=== PATIENT | male | born 1945 | race Caucasian/White ===

== ENCOUNTER 2017-04-04 07:08 | Day surgery (SDC) | payer MEDICARE, OTHER ==
[2017-04-04] MEDS ORDERED: LACTATED RINGERS 1,000 ML IV ONE (08:06)
[2017-04-04] MEDS ORDERED: fentaNYL 100 MCG/2 ML VIAL IVP ONE (08:40)
[2017-04-04] MEDS ORDERED: MIDAZOLAM 2 MG/2 ML VIAL IVP ONE (08:40)
[2017-04-04 09:47] VITALS: BP 124/78
== END 2017-04-04 07:09 | disposition home or self-care (01) ==
LOC: SDS 07:08
PROVIDERS: ATTEND Surgery
PROC: 0DBN8ZX Excision of Sigmoid Colon, Via Natural or Artificial Opening Endoscopic, Diagnostic (ICD-10-PCS; 2017-04-04)
PROC: 0DBM8ZX Excision of Descending Colon, Via Natural or Artificial Opening Endoscopic, Diagnostic (ICD-10-PCS; 2017-04-04)
PROC: 0DBK8ZX Excision of Ascending Colon, Via Natural or Artificial Opening Endoscopic, Diagnostic (ICD-10-PCS; principal; 2017-04-04 08:30)
DX: D12.2 Benign neoplasm of ascending colon (principal); D12.4 Benign neoplasm of descending colon; K63.5 Polyp of colon; K64.4 Residual hemorrhoidal skin tags; K64.8 Other hemorrhoids; K59.00 Constipation, unspecified; Z79.82 Long term (current) use of aspirin; Z79.84 Long term (current) use of oral hypoglycemic drugs; E11.9 Type 2 diabetes mellitus without complications; Z82.3 Family history of stroke; E78.00 Pure hypercholesterolemia, unspecified; Z95.5 Presence of coronary angioplasty implant and graft
CPT/HCPCS: 45384; J7120

== ENCOUNTER 2018-02-12 | Outpatient (CLI) | END 2018-02-12 17:59 | disposition critical access hospital (66) | CPT/HCPCS: A0425; A0429 ==

== ENCOUNTER 2018-02-12 18:47 | Emergency (ER) | payer MEDICARE, OTHER ==
[2018-02-12] MEDS ORDERED: BACITRACIN OINT TOP STA (18:58)
[2018-02-12] MEDS ORDERED: TETANUS/DIPHTHERIA/PERTUSSIS 0.5 ML SYRINGE IM ONE (18:58)
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
[2018-02-12] MEDS ORDERED: IBUPROFEN 400 MG TABLET PO STA (20:18)
[2018-02-12 21:00] VITALS: BP 157/95
== END 2018-02-12 21:00 | disposition home or self-care (01) ==
LOC: EDUNIT# → ED 18:47
DX: S01.81XA Laceration without foreign body of other part of head, initial encounter (principal); S00.81XA Abrasion of other part of head, initial encounter; V18.4XXA Pedal cycle driver injured in noncollision transport accident in traffic accident, initial encounter; Y93.55 Activity, bike riding; Y92.488 Other paved roadways as the place of occurrence of the external cause; E78.00 Pure hypercholesterolemia, unspecified; E11.9 Type 2 diabetes mellitus without complications; Z79.84 Long term (current) use of oral hypoglycemic drugs; N40.0 Benign prostatic hyperplasia without lower urinary tract symptoms; Z79.82 Long term (current) use of aspirin; Z23 Encounter for immunization
CPT/HCPCS: 12011; 70450; 70486; 90471; 90715; 99283; A9270

== ENCOUNTER 2019-07-15 04:29 | Observation (INO) | payer MEDICARE, OTHER ==
[2019-07-15] MEDS ORDERED: SODIUM CHLORIDE 0.9% 500 ML IV STA (04:51)
[2019-07-15] MEDS ORDERED: KETOROLAC 30 MG/ML VIAL IVP STA (04:51)
[2019-07-15] MEDS ORDERED: HYDROmorphone 1 MG/ML CARPUJECT IVP STA (04:51)
[2019-07-15] MEDS ORDERED: ONDANSETRON 4 MG/2 ML VIAL IVP STA ×2 (04:51→08:07)
--- NOTE | 2019-07-15 04:51 | ED Physician Documentation ---
PD HPI ABD PAIN - Stated complaint Stated Complaint: STOMACH PX, CHEST PX - History obtained from History obtained from: Patient - History of Present Illness Timing - onset: Enter time (14:00), Yesterday Timing - details: Abrupt onset, Waxing and waning, Still present in ED Pain level max: 8 Pain level now: 6 Quality: Pain Location: RUQ, Epigastric Improved by: Other (nothing) Worsened by: Other (no exacerbating factors) Associated symptoms: Nausea, Vomiting. No: Fever, Diarrhea, Constipation Similar symptoms before: Other (milder, self-limited similar episodes over past several days) Recently seen: Not recently seen - Additional information Additional information: since 2 PM yesterday after eating fried chicken, experienced sudden onset RUQ and epigastric pain that has been waxing and waning since then with nausea and episodes of "dry heaving". Review of Systems Constitutional: denies: Fever, Chills, Sweats Nose: reports: Reviewed and negative Throat: reports: Reviewed and negative Cardiac: reports: Reviewed and negative Respiratory: reports: Reviewed and negative GI: reports: Abdominal Pain, Nausea, Vomiting. denies: Constipation, Diarrhea : denies: Dysuria, Frequency Skin: reports: Reviewed and negative Musculoskeletal: reports: Reviewed and negative Neurologic: reports: Reviewed and negative PD PAST MEDICAL HISTORY - Past Medical History Cardiovascular: High cholesterol, [place] Respiratory: None Endocrine/Autoimmune: Type 2 diabetes GI: Hemorrhoids : Benign prostate hypertrophy HEENT: None Psych: None Musculoskeletal: None Derm: None - Past Surgical History Past Surgical History: Yes Ortho: Hip replacement Cardiovascular: Coronary stent - Present Medications Home Medications: Ambulatory Orders Medication Instructions Recorded Confirmed Aspirin [Aspir 81] 162 mg PO DAILY 02/17/15 04/03/17 Tamsulosin [Flomax] 0.4 mg PO DAILY 02/17/15 04/03/17 metFORMIN [Glucophage] 500 mg PO BIDWM 02/17/15 04/03/17 Atorvastatin [Lipitor] 10 mg PO QPM 04/04/17 04/04/17 - Allergies Allergies/Adverse Reactions: Allergies Allergy/AdvReac Type Severity Reaction Status Date / Time No Known Drug Allergies Allergy Verified 02/17/15 16:37 - Social History Does the pt smoke?: No Smoking Status: Never smoker Does the pt drink ETOH?: Yes Does the pt have substance abuse?: No - Immunizations Immunizations are current?: Yes PD ED PE NORMAL - Vitals Vital signs reviewed: Yes - General General: Alert and oriented X 3, Well developed/nourished, Other (appears uncomfortable, mild/moderate painful distress) - HEENT HEENT: Moist mucous membranes - Neck Neck: Supple, no meningeal sign - Cardiac Cardiac: RRR, No murmur - Respiratory Respiratory: No respiratory distress, Clear bilaterally - Abdomen Abdomen: Normal bowel sounds, Soft, Non tender, Non distended - Back Back: No CVA TTP - Derm Derm: Normal color, Warm and dry, No rash - Extremities Extremities: No edema Results - Vitals Vitals: Vital Signs - 24 hr 07/15/19 07/15/19 07/15/19 04:33 04:42 07:32 Temperature 36.5 C Heart Rate 66 61 Respiratory 23 20 Rate Blood Pressure 218/91 H 128/68 O2 Saturation 100 98 Oxygen O2 Source Room air - Labs Labs: Laboratory Tests 07/15/19 07/15/19 07/15/19 04:40 04:40 04:40 WBC 11.3 H RBC 5.15 Hgb 15.8 Hct 45.8 MCV 88.9 MCH 30.7 MCHC 34.5 RDW 11.8 L Plt Count 193 MPV 10.3 Neut # (Auto) 9.6 H Lymph # (Auto) 1.0 L Brewster # (Auto) 0.6 Eos # (Auto) 0.0 Baso # (Auto) 0.0 Absolute Nucleated RBC 0.00 Nucleated RBC % 0.0 Sodium 136 Potassium 4.0 Chloride 100 L Carbon Dioxide 23 Anion Gap 13.0 BUN 15 Creatinine 0.8 Estimated GFR (MDRD) 95 Glucose 204 H Calcium 9.9 Total Bilirubin 1.5 H AST 23 ALT 20 Alkaline Phosphatase 72 Troponin I High Sens 5.0 Total Protein 7.6 Albumin 4.6 Globulin 3.0 Albumin/Globulin Ratio 1.5 Lipase 19 L Urine Color Urine Clarity Urine pH Ur Specific [place] Urine Protein Urine Glucose (UA) Urine Ketones Urine Occult Blood Urine Nitrite Urine Bilirubin Urine Urobilinogen Ur Leukocyte Esterase Ur Microscopic Review Urine Culture Comments 07/15/19 06:33 WBC RBC Hgb Hct MCV MCH MCHC RDW Plt Count MPV Neut # (Auto) Lymph # (Auto) Brewster # (Auto) Eos # (Auto) Baso # (Auto) Absolute Nucleated RBC Nucleated RBC % Sodium Potassium Chloride Carbon Dioxide Anion Gap BUN Creatinine Estimated GFR (MDRD) Glucose Calcium Total Bilirubin AST ALT Alkaline Phosphatase Troponin I High Sens Total Protein Albumin Globulin Albumin/Globulin Ratio Lipase Urine Color YELLOW Urine Clarity CLEAR Urine pH 7.0 Ur Specific [place] 1.015 Urine Protein NEGATIVE Urine Glucose (UA) 250 H Urine Ketones 15 H Urine Occult Blood NEGATIVE Urine Nitrite NEGATIVE Urine Bilirubin NEGATIVE Urine Urobilinogen 0.2 (NORMAL) Ur Leukocyte Esterase NEGATIVE Ur Microscopic Review NOT INDICATED Urine Culture Comments NOT INDICATED - Rads (name of study) RUQ US Radiology: Prelim report reviewed, See rad report PD MEDICAL DECISION MAKING - ED course Complexity details: reviewed results, re-evaluated patient, considered differential, d/w patient ED course: Symptoms controlled with IV zofran, dilaudid, and toradol. US interpreted as c/w acute cholecystitis. D/W Dr. Meir Milton, recommends IV zosyn and admit to hospitalist service. D/W Dr. Pedraza for admission Departure - Departure Disposition: ED Place in Observation Clinical Impression: Cholecystitis Condition: Good
[2019-07-15 05:19] LABS: BASOPHILS % (AUTO) 0.3 %; EOSINOPHILS % (AUTO) 0.1 %; HGB - HEMOGLOBIN 15.8 g/dL (14.0-18.0); LYMPHOCYTES % (AUTO) 8.4 %; MEAN CORPUSCULAR HEMOGLOBIN 30.7 pg (27.0-31.0); MEAN CORPUSCULAR HGB CONC 34.5 g/dL (32.0-36.0); MEAN CORPUSCULAR VOLUME 88.9 fL (80.0-94.0); MEAN PLATELET VOLUME 10.3 fL (7.4-11.4); MONOCYTES # (AUTO) 0.6 10^3/uL (0.0-1.0); MONOCYTES % (AUTO) 5.2 %; NEUTROPHILS # (AUTO) 9.6 10^3/uL (1.5-6.6); NEUTROPHILS % (AUTO) 85.6 %; PLT - PLATELET COUNT 193 10^3/uL (130-450); RED BLOOD COUNT 5.15 10^6/uL (4.70-6.10); RED CELL DISTRIBUTION WIDTH 11.8 % (12.0-15.0); WHITE BLOOD COUNT 11.3 x10^3/uL (4.8-10.8)
[2019-07-15 05:30] LABS: ALBUMIN 4.6 g/dL (3.2-5.5); ALBUMIN/GLOBULIN RATIO 1.5 (1.0-2.2); BILIRUBIN,TOTAL 1.5 mg/dL (0.2-1.0); CALCIUM 9.9 mg/dL (8.5-10.3); CREATININE 0.8 mg/dL (0.6-1.2); TOTAL PROTEIN 7.6 g/dL (6.7-8.2)
--- NOTE | 2019-07-15 06:26 | Ultrasound Report ---
Reason: abd. pain Procedure Date: 07/15/2019 Accession Number: [id number] / [id number] Procedure: US - Abdomen Limited CPT Code: Final Report FULL RESULT: EXAM: ABDOMEN ULTRASOUND LIMITED, RUQ EXAM DATE: 07/15/2019 06:08 AM CLINICAL HISTORY: Abdominal pain. COMPARISON: None. TECHNIQUE: Real-time scanning was performed with static images obtained. FINDINGS: Liver: Echotexture within normal limits without suspicious abnormality seen. Main portal vein flow: Hepatopetal. Gallbladder: Large stone lodged in the neck of the gallbladder. Wall thickening at 4 mm. There is reported tenderness. Biliary System: CBD measures 5 mm. No intrahepatic or extrahepatic ductal dilatation. Other: No right hydronephrosis. IMPRESSION: Findings consistent with acute cholecystitis. RADIA
[2019-07-15 06:42] LABS: BILIRUBIN,URINE NEGATIVE (NEGATIVE); GLUCOSE, URINE (UA) 250 mg/dL (NEGATIVE); KETONES,URINE (UA) 15 mg/dL (NEGATIVE); LEUKOCYTE ESTERASE, URINE NEGATIVE (NEGATIVE); NITRITE,URINE NEGATIVE (NEGATIVE); OCCULT BLOOD,URINE NEGATIVE (NEGATIVE); PROTEIN,URINE NEGATIVE (NEGATIVE); UROBILINOGEN,URINE 0.2 (NORMAL) E.U./dL (NORMAL)
[2019-07-15 06:49] LABS: CLARITY,URINE CLEAR (CLEAR)
[2019-07-15] MEDS ORDERED: PIPERACILLIN/TAZOBACTAM 3.375 GM in SODIUM CHLORIDE 0.9% MINIBAG 100 ML IV STA (07:27)
[2019-07-15] MEDS ORDERED: ONDANSETRON 4 MG/2 ML VIAL IVP PRN (07:44)
[2019-07-15] MEDS ORDERED: MORPHINE 2 MG/ML CARPUJECT IVP PRN (07:44)
[2019-07-15] MEDS ORDERED: LACTATED RINGERS 1,000 ML IV SCH ×2 (08:00→18:49)
[2019-07-15] MEDS: SODIUM CHLORIDE FLUSH 0.9% 10 ML SYRINGE IVP SCH ×2 (09:12→16:43)
--- NOTE | 2019-07-15 09:18 | HISTORY & PHYSICAL EXAMINATION ---
Chief Complaint - Chief Complaint Chief Complaint: Abdominal/Chest pain. History of Present Illness - Admitted From Admitted From:: Home - History Obtained From Records Reviewed: Yes History obtained from: Patient, ESTELLA Redmond - History of Present Illness HPI Comment/Other: This is a 74-year-old male with a past medical history significant for type 2 diabetes, coronary artery disease with stenting Who presents from home complaining of epigastric and chest pain. He reports the pain began yesterday around 2 PM after he had fried chicken 1 hour earlier. He did peel the skin off the chicken prior to eating this. He then had nausea with dry heaves. He reports no similar episodes. He reports no fevers but he did have chills. He did feel like he was short of breath after the episode and had heartburn and some chest pain. He also reports diffuse abdominal pain during that time.He reports no dysuria, urgency. Reports that he is normally quite active and hikes quite a bit. He does not have chest pain with exertion. He had a nuclear str ess test completed approximately 1 year ago and was told it was normal. He just saw his cook helper meat a few days ago and was doing quite well. In the emergency department, he was found to be hemodynamically stable. Labs were unremarkable except for a white count of 11.3 and a glucose of 204. Total bilirubin was 1.5. AST and ALT were normal. Lipase was also normal. He underwent a right upper quadrant ultrasound which showed a large stone in the neck of the bladder and wall thickening at 4 mm. There was no duct dilatation. This was consistent with acute cholecystitis. Surgery was consulted and recommended medicine admission given the history of coronary artery disease and diabetes. He will be admitted for further management. Discussed with the patient regarding goals of care and he would like to be a full code. History - Past Medical History Cardiovascular: reports: High cholesterol, [place] Respiratory: reports: None Neuro: reports: None Endocrine/Autoimmune: reports: Type 2 diabetes GI: reports: Hemorrhoids : reports: Benign prostate hypertrophy HEENT: reports: None Psych: reports: None Musculoskeletal: reports: None Derm: reports: None MRSA Hx?: No - Past Surgical History Ortho: reports: Hip replacement Cardiovascular: reports: Coronary stent - Family & Social History Family History Comment/Other: Reports his father had a cardiac history. Denies any other family history. Living arrangement: At home Living Situation: With spouse/s.o. 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 Previously lived in [place]. He does not smoke. He does drink approximately 2 glasses of wine on a daily basis. Meds/Allgy - Home Medications Home Medications: Ambulatory Orders Medication Instructions Recorded Confirmed Aspirin [Aspir 81] 162 mg PO DAILY 02/17/15 04/03/17 Tamsulosin [Flomax] 0.4 mg PO DAILY 02/17/15 04/03/17 metFORMIN [Glucophage] 500 mg PO BIDWM 02/17/15 04/03/17 Atorvastatin [Lipitor] 10 mg PO QPM 04/04/17 04/04/17 - Allergies Allergies/Adverse Reactions: Allergies Allergy/AdvReac Type Severity Reaction Status Date / Time No Known Drug Allergies Allergy Verified 02/17/15 16:37 Review of Systems - Constitutional Constitutional: reports: Chills. denies: Fatigue, Fever, Poor appetite - Cardiovascular Cariovascular: reports: Chest pain. denies: Exertional dyspnea, Decr. exercise tolerance - Respiratory Respiratory: denies: Cough, SOB at rest, SOB with exertion - Gastrointestinal Gastrointestinal: reports: Abdominal pain, Change in bowel habits, Nausea, Vomiting. denies: Constipation, Diarrhea - Genitourinary Genitourinary: denies: Dysuria, Frequency, Urgency - Neurological Neurological: denies: General weakness - All Other Systems All Other Systems: reports: Reviewed and negative Prior Level of Functionality: Independent with ADLs. Exam - Vital Signs Reviewed Vital Signs: Yes Vital Signs: Vital Signs x48h Temp Pulse Pulse Resp BP BP Pulse Ox 07/15/19 08:30 36.8 C 59 L 20 120/62 100 07/15/19 07:32 61 20 128/68 98 07/15/19 04:42 36.5 C 07/15/19 04:33 66 23 218/91 H 100 - Physical Exam General Appearance: positive: No acute distress, Alert Eyes Bilateral: positive: Normal inspection ENT: positive: ENT inspection nml Neck: positive: Nml inspection Respiratory: positive: No respiratory distress. negative: Wheezes, Rales, Rhonchi Cardiovascular: positive: Regular rate & rhythm, No murmur. negative: Tachycardia, Bradycardia, Systolic murmur, Diastolic murmur Abdomen: positive: Non-tender, No distention. negative: Tenderness, Guarding, Rebound Skin: positive: No rash, Warm, Dry Extremities: positive: Full ROM, No pedal edema Neurologic/Psychiatric: positive: Oriented x3. negative: Disoriented to person, Disoriented to place, Disoriented to time Conclusion/Plan - Problem List (1) Cholecystitis Conclusion/Plan: This is evident on right upper quadrant abdominal ultrasound.We will keep him n.p.o. and start him on Zosyn IV. Protonix IV.Morphine IV for pain. Zofran for nausea. General surgery consult for intervention. (2) Pre-op evaluation Conclusion/Plan: Able to function greater than 4 METS. He has no angina. His EKG is without ischemia. His troponin is negative. He is medically optimized to proceed with surgical intervention. (3) CAD (coronary artery disease) Conclusion/Plan: Stable. His EKG is without signs of ischemia. Troponin is negative. Continue home aspirin and statin once taking p.o. (4) BPH (benign prostatic hyperplasia) Conclusion/Plan: Stable. Continue Flomax once taking p.o. (5) Type 2 diabetes mellitus Conclusion/Plan: Stable. He reports his A1c was 6%. We will place him on consistent carbohydrate diet once he is taking p.o. Sliding scale while inpatient. We will put him back on metformin for discharge. - Lab Results Lab results reviewed: Yes Fish Bones: 07/15/19 04:40 07/15/19 04:40 - Diagnostic Imaging Results Diagnostic Imaging Results: positive: Final report reviewed - EKG Results EKG Interpreted Independently: Yes EKG Findings: Sinus rhythm without signs of ischemia. Core Measures - Anticipated LOS I expect patient to be DC'd or transferred within 96 hours.: Yes - Issues Hospital Issues and Management Plan: Acute cholecystitis requiring IV antibiotics and general surgery consult. - DVT/VTE - Prophylaxis VTE/DVT Device ordered at admit?: Yes VTE/DVT Prophylaxis med ordered at admit?: No
[2019-07-15] MEDS: SODIUM CHLORIDE FLUSH 0.9% 10 ML SYRINGE IVP PRN (10:19)
[2019-07-15] MEDS: PANTOPRAZOLE 40 MG VIAL IVP SCH (10:19)
--- NOTE | 2019-07-15 10:47 | ANESTHESIA ---
Pre-Anesthesia VS, & Labs - Diagnosis Cholecystitis - Procedure Laparoscopic cholecystectomy Vital Signs: Temp Pulse Resp BP Pulse Ox 36.8 C 59 L 20 120/62 100 07/15/19 08:30 07/15/19 08:30 07/15/19 08:30 07/15/19 08:30 07/15/19 08:30 Height 6 ft 3 in Weight (kg) 93 kg Body Mass Index 25.6 - NPO >8 hours - Lab Results Current Lab Results: Laboratory Tests 07/15/19 04:40: Troponin I High Sens 5.0 07/15/19 04:40: Sodium 136, Potassium 4.0, Chloride 100 L, Carbon Dioxide 23, Anion Gap 13.0, BUN 15, Creatinine 0.8, Estimated GFR (MDRD) 95, Glucose 204 H, Calcium 9.9, Total Bilirubin 1.5 H, AST 23, ALT 20, Alkaline Phosphatase 72, Total Protein 7.6, Albumin 4.6, Globulin 3.0, Albumin/Globulin Ratio 1.5, Lipase 19 L 07/15/19 04:40: WBC 11.3 H, RBC 5.15, Hgb 15.8, Hct 45.8, MCV 88.9, MCH 30.7, MCHC 34.5, RDW 11.8 L, Plt Count 193, MPV 10.3, Neut # (Auto) 9.6 H, Lymph # (Auto) 1.0 L, [place] # (Auto) 0.6, Eos # (Auto) 0.0, Baso # (Auto) 0.0, Absolute Nucleated RBC 0.00, Nucleated RBC % 0.0 Lab results reviewed: Yes Fish Bones: 07/15/19 04:40 07/15/19 04:40 Home Medications and Allergies Active Medications Lactated Ringer's (Lr) 1,000 mls @ 100 mls/hr IV .Q10H ISIDORO Last Admin: 07/15/19 09:08 Dose: 100 mls/hr Piperacillin Sod/Tazobactam (Sod 3.375 gm/ Sodium Chloride) 100 mls @ 200 mls/hr IV Q6H ISIDORO Insulin Human Regular (Humulin R) 1 - 9 unit SUBQ Q6HR ISIDORO; Protocol Morphine Sulfate (Morphine (Carpuject)) 2 mg IVP Q2HR PRN PRN Reason: Pain 8 to 10 Ondansetron HCl (Zofran Inj) 4 mg IVP Q6HR PRN PRN Reason: Nausea / Vomiting Pantoprazole Sodium (Protonix) 40 mg IVP QDAC [facility] Last Admin: 07/15/19 10:19 Dose: 40 mg Sodium Chloride (Normal Saline Flush 0.9%) 10 ml IVP PRN PRN PRN Reason: NEEDED PER PROVIDER ORDERS Last Admin: 07/15/19 10:19 Dose: 10 ml Sodium Chloride (Normal Saline Flush 0.9%) 10 ml IVP 0100,0900,1700 [facility] Last Admin: 07/15/19 09:12 Dose: Not Given Aspirin [Aspir 81] 162 mg PO DAILY 02/17/15 Tamsulosin [Flomax] 0.4 mg PO DAILY 02/17/15 metFORMIN [Glucophage] 500 mg PO BIDWM 02/17/15 Atorvastatin [Lipitor] 10 mg PO QPM 04/04/17 Allergies/Adverse Reactions: Allergies Allergy/AdvReac Type Severity Reaction Status Date / Time No Known Drug Allergies Allergy Verified 02/17/15 16:37 Anes History & Medical History - Anesthetic History Anesthesia Complications: reports: No previous complications Family history of Anesthesia Complications: Denies Family history of Malignant Hyperthermia: Denies - Medical History Cardiovascular: reports: High cholesterol, [place] Pulmonary: reports: None Gastrointestinal: reports: Hemorrhoids Urinary: reports: Benign prostate hypertrophy Neuro: reports: None Musculoskeletal: reports: None Endocrine/Autoimmune: reports: Type 2 diabetes Blood Disorders: reports: None Skin: reports: None Smoking Status: Never smoker - Surgical History Cardiothoracic: Coronary stent Orthopedic: Hip replacement Exam General: Alert, Oriented x3, Cooperative Dental: WNL Mouth Openin Fingerbreadth Neck Mobility: Normal Mallampati classification: I Respiratory: Lungs clear, Normal breath sounds, No respiratory distress Cardiovascular: Regular rate Neurological: Normal speech Mental/Cognitive Status: Alert/Oriented X3, Normal for patient Cognitive Status: Within normal limits Plan Anesthesia Type: General Consent for Procedure(s) Verified and Reviewed: Yes Code Status: Attempt Resuscitation ASA classification: 3-Severe systemic disease Is this case an emergency?: No
[2019-07-15] MEDS ORDERED: INSULIN REGULAR HUMAN 300 UNIT/3 ML VIAL SUBQ SCH (12:00)
[2019-07-15] MEDS ORDERED: ACETAMINOPHEN 1,000 MG/100 ML 100 ML IV ONE (13:18)
[2019-07-15] MEDS: PIPERACILLIN/TAZOBACTAM 3.375 GM in SODIUM CHLORIDE 0.9% MINIBAG 100 ML IV SCH ×2 (14:27→20:28)
--- NOTE | 2019-07-15 17:02 | CONSULTATION NOTE ---
Referring Provider Name of Referring Provider:: Dr. Pedraza Consult Date: 07/15/19 Chief Complaint - Chief Complaint Chief Complaint: Epigastric and RUQ pain, N,V History of Present Illness - Admitted From Admitted From:: ER - History Obtained From Records Reviewed: yes History obtained from: pt, records Exam Limitations: none - History of Present Illness HPI Comment/Other: 74 yo male with sudden onset of epigastric and RUQ pain radiating into the back associated with N/V at 1400 hrs yesterday after a fried chicken meal. Because of persistent and worsening pain he presented to the ER last night and was evaluated and admitted this morning. His pain has persisted although it is much better with analgesics at present. He reports 3 previous milder similar episodes over the past 4 months that were associated with eating peanuts, and were self limited. No hx hepatitis or jaundice, no recent wt loss, no change in bowel habits, melena, hematochezia, no fever/chills. Neg FH gallbladder disease. No hx PUD. Evaluation in the ER included labs showing mild leukocytosis, nl lfts except total bili of 1.5, nl lipase, neg UA, and abd US which showed a large st one impacted in the neck of the gallbladder, with gallbladder wall thickening and nl bile ducts, liver, and right kidney. Surgical consultation was requested. History - Past Medical History Cardiovascular: reports: High cholesterol, [place] Respiratory: reports: None Neuro: reports: None Endocrine/Autoimmune: reports: Type 2 diabetes GI: reports: Hemorrhoids : reports: Benign prostate hypertrophy HEENT: reports: None Psych: reports: None Musculoskeletal: reports: None Derm: reports: None MRSA Hx?: No - Past Surgical History Ortho: reports: Hip replacement, Other (ORIF/revascularization lower leg s/p trauma) Cardiovascular: reports: Coronary stent - Family & Social History Family History Comment/Other: Reports his father had a cardiac history. Denies any other family history. Living arrangement: At home Living Situation: With spouse/s.o. 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 Previously lived in [place]. He does not smoke. He does drink approximately 2 glasses of wine on a daily basis. No recreational drugs - Substance History Use: Uses substance without health or social issues: Alcohol Abuse: Recurrent use of substance despite neg consequences: NONE Dependence: Experiences withdrawal or developed tolerances: NONE Meds/Allgy - Home Medications Home Medications: Ambulatory Orders Medication Instructions Recorded Confirmed Aspirin [Aspir 81] 162 mg PO DAILY 02/17/15 04/03/17 Tamsulosin [Flomax] 0.4 mg PO DAILY 02/17/15 04/03/17 metFORMIN [Glucophage] 500 mg PO BIDWM 02/17/15 04/03/17 Atorvastatin [Lipitor] 10 mg PO QPM 04/04/17 04/04/17 - Allergies Allergies/Adverse Reactions: Allergies Allergy/AdvReac Type Severity Reaction Status Date / Time No Known Drug Allergies Allergy Verified 02/17/15 16:37 Review of Systems - Constitutional Constitutional: denies: Fever, Chills, Weight gain, Weight loss - Cardiovascular Cariovascular: denies: Chest pain - Respiratory Respiratory: reports: SOB at rest (with initial onset of sx yesterday, difficulty taking a deep breath due to pain). denies: Cough, Sputum production, Wheezing - Gastrointestinal Gastrointestinal: reports: Abdominal pain, Constipation (chronic mild), Nausea, Vomiting, Bloating. denies: Abdominal distention, Diarrhea, Change in bowel habits, Rectal bleeding, Black stools, Bloody stools, Coffee grounds emesis - Genitourinary Genitourinary: reports: Nocturia. denies: Dysuria - Hematologic/Lymphatic Hematologic/Lymphatic: denies: Bruising, Blood clots, Bleeding tendencies - All Other Systems All Other Systems: reports: Reviewed and negative (or covered in HPI/PMH) Exam - Vital Signs Reviewed Vital Signs: Yes Vital Signs: Vital Signs x48h Temp Pulse Pulse Pulse Resp BP Pulse Ox 07/15/19 15:35 37.3 C 60 20 125/62 97 07/15/19 13:00 37.5 C 62 20 125/61 100 07/15/19 10:00 36.8 C 59 L 20 100 - Physical Exam General Appearance: positive: Alert, Mild distress Eyes Bilateral: positive: Normal inspection, PERRL, No lid inflammation, Conjunctivae nml, No scleral icterus ENT: positive: ENT inspection nml, Pharynx nml, No signs of dehydration Neck: positive: Nml inspection, No JVD, Trachea midline. negative: Lymphadenopathy (R), Lymphadenopathy (L) Respiratory: positive: Chest non-tender, No respiratory distress, Breath sounds nml Cardiovascular: positive: Regular rate & rhythm, No murmur, No gallop Abdomen: positive: Nml bowel sounds, Tenderness (mild midepigastric and RUQ tenderness). negative: Guarding, Rebound, Hepatomegaly, Splenomegaly, Mass Skin: positive: Color nml, No rash, Warm, Dry. negative: Cyanosis Extremities: positive: No pedal edema. negative: Calf tenderness Neurologic/Psychiatric: positive: Oriented x3 Conclusion/Plan - Diagnosis Diagnosis: Acute calculous cholecystitis in 74 yo diabetic male - Plan Plan: laparoscopic cholecystectomy with poss cholangiograms. PAR conf in detail and consent obtained. Cleared for surgery by Dr. Pedraza. Procedure will be scheduled for later today. Thanks, - Lab Results Lab results reviewed: Yes Fish Bones: 07/15/19 04:40 07/15/19 04:40 Other Lab Results: lfts nl except t bili 1.5; nl lipase, neg UA - Diagnostic Imaging Results Diagnostic Imaging Results: positive: Final report reviewed Diagnostic Imaging Results Comments: See HPI
[2019-07-15] MEDS ORDERED: LACTATED RINGERS 1,000 ML IV ONE ×2 (17:06→17:50)
[2019-07-15] MEDS ORDERED: LIDOCAINE 1%-EPI 1:100000 20 ML MDV ONE (17:19)
[2019-07-15] MEDS ORDERED: LIDOCAINE 1%-EPI 1:100000 20 ML MDV SUBQ ONE (17:38)
[2019-07-15] MEDS ORDERED: KETOROLAC 15 MG/ML VIAL IVP PRN (18:43)
[2019-07-15] MEDS ORDERED: oxyCODONE 5 MG TABLET PO PRN (18:47)
--- NOTE | 2019-07-15 18:51 | OPERATIVE REPORT ---
Operative Report - General Admit Date: 07/15/19 Planned Procedure: lap cholecystectomy Pre-Op Diagnosis: acute calculous cholecystitis Procedure Performed: lap cholecystectomy Post Op Diagnosis: same - Procedure Note Primary Surgeon: Meir Milton MD [facility] Anesthesia Provider: Terence Truong CRNA Anesthesia Technique: General ET tube Pathology: gallbladder and contents IV Fluids (mL): 1,000 Estimated Blood Loss (mL): 25 Findings: acute inflamed, hemorrhagic, hydropic gallbladder with solitary black 3 cm diameter stone. Complications: none
[2019-07-15] MEDS: ACETAMINOPHEN 325 MG TABLET PO SCH (20:09)
[2019-07-15] MEDS: INSULIN ASPART 300 UNIT/3 ML PEN SUBQ SCH (20:57)
[2019-07-15] MEDS: ENOXAPARIN 40 MG/0.4 ML SYRINGE SUBQ SCH (23:59)
[2019-07-16] MEDS: ACETAMINOPHEN 325 MG TABLET PO SCH ×3 (01:37→08:14)
[2019-07-16] MEDS: SODIUM CHLORIDE FLUSH 0.9% 10 ML SYRINGE IVP SCH ×2 (01:39→08:15)
[2019-07-16] MEDS: PIPERACILLIN/TAZOBACTAM 3.375 GM in SODIUM CHLORIDE 0.9% MINIBAG 100 ML IV SCH ×2 (01:40→08:14)
[2019-07-16] MEDS ORDERED: BENZOCAINE/MENTHOL LOZENGE MM PRN (01:59)
[2019-07-16] MEDS: SODIUM CHLORIDE FLUSH 0.9% 10 ML SYRINGE IVP PRN ×2 (02:12→06:38)
--- NOTE | 2019-07-16 03:09 | OPERATIVE REPORT ---
DATE OF SERVICE: 07/15/2019 Physician: Meir Milton MD PREOPERATIVE DIAGNOSIS: Acute calculous cholecystitis. POSTOPERATIVE DIAGNOSIS: Acute calculous cholecystitis. PROCEDURE PERFORMED: Laparoscopic cholecystectomy. ANESTHESIA: General endotracheal by Terence Truong CRNA. SURGEON: Meir Milton MD ESTIMATED BLOOD LOSS: 25 mL COMPLICATIONS: None. FINDINGS: Laparoscopy revealed an acutely inflamed hemorrhagic hydropic gallbladder containing a lillian itary 3 cm diameter oval-shaped black stone. Cystic duct was of normal caliber. Common duct was not visualized. The visualized portion of the liver, small and large bowel and stomach were otherwise w ithin normal limits. Extensive inflammation was present in the cystic triangle, which made the disse ction difficult. INDICATIONS: Patient is a 74-year-old gentleman with a 30-hour history of sudden onset of severe epi gastric and right upper quadrant pain, nausea and vomiting associated with upper abdominal tenderness , elevated white count, normal liver function tests except for mild elevation of total bilirubin, nor mal lipase and an ultrasound showing a markedly thickened gallbladder wall with a solitary large ston e impacted in the neck of the gallbladder, all of which was consistent with a diagnosis of acute calc ulus cholecystitis. He was advised to undergo laparoscopic cholecystectomy for definitive surgical t reatment. TECHNIQUE: After preoperative medical evaluation and clearance by Dr. Pedraza and informed consent, t he patient was taken to the operating room and was placed under general endotracheal anesthesia. Pre operative preparation included the application of sequential calf compression boots and prior therape utic administration of piperacillin/tazobactam. His abdomen was prepared with ChloraPrep solution an d draped in the usual sterile fashion. A transverse incision was made along the superior edge of the umbilicus and carried down through the layers of abdominal wall until the peritoneum was identified and entered sharply. A 10-mm Leon can nula was inserted and pneumoperitoneum achieved with carbon dioxide. A 5-mm 30-degree Hendley telesc ope was inserted. Laparoscopy was carried out with findings noted above. Three additional 5-mm port s were placed in the right upper quadrant. Instruments were passed. Pericholecystic adhesions were lysed. The gallbladder was unable to be grasped initially due to its tense nature and thickened wall , so a needle and syringe were used to aspirate 20 mL of cloudy, light yellow bile, which allowed the gallbladder to be grasped and retracted in a cephalad and lateral direction. The cystic triangle of [place] was exposed and carefully dissected using the hook electrode and electrocautery. The cystic d uct was isolated. The cystic artery was encountered and partially transected during dissection of th e cystic triangle. The bleeding was controlled with clips applied proximally and distally x2 and div ided between. The cystic duct was then divided between 2 sets of clips adjacent to the gallbladder. This was done after as much of the critical view as could be obtained given the severe inflammation. The gallbladder was then dissected off of the liver bed using electrocautery for dissection and hem ostasis. A small portion of the gallbladder remained in situ in the liver bed to facilitate the rese ction. This portion of the gallbladder that was left in situ, the mucosa of which was cauterized wit h electrocautery, destroying the mucosa. The gallbladder and stone were then placed in an organ retr ieval bag, extracted through the umbilical port and sent for pathologic evaluation. After hemostasis was ensured, the right upper quadrant was copiously irrigated with saline solution, following which instruments and cannulas were removed under direct vision. Pneumoperitoneum was allo wed to escape and the incisions were closed in layers using continuous 0 Vicryl, reapproximating the midline fascia at the umbilicus, followed by 4-0 Monocryl subcuticular skin closure at all the port s ites, followed by Dermabond. Then, 20 mL of 0.5% Marcaine with epinephrine was infiltrated into the incisions assisting in postoperative analgesia. Anesthesia was terminated and patient was transferre d to the recovery room in satisfactory condition. Sponge and needle counts were correct x2. No drai ns were used. TD: 07/15/2019 19:01
[2019-07-16 05:55] LABS: BASOPHILS % (AUTO) 0.1 %; EOSINOPHILS % (AUTO) 1.6 %; HGB - HEMOGLOBIN 12.7 g/dL (14.0-18.0); LYMPHOCYTES % (AUTO) 8.8 %; MEAN CORPUSCULAR HEMOGLOBIN 30.6 pg (27.0-31.0); MEAN CORPUSCULAR HGB CONC 33.7 g/dL (32.0-36.0); MEAN CORPUSCULAR VOLUME 90.8 fL (80.0-94.0); MEAN PLATELET VOLUME 10.1 fL (7.4-11.4); MONOCYTES % (AUTO) 8.5 %; NEUTROPHILS % (AUTO) 80.7 %; PLT - PLATELET COUNT 147 10^3/uL (130-450); RED BLOOD COUNT 4.15 10^6/uL (4.70-6.10)
[2019-07-16 05:59] LABS: ABNORMAL LYMPHS % (MANUAL) 0 %
[2019-07-16 06:03] LABS: ALBUMIN 3.3 g/dL (3.2-5.5); ALBUMIN/GLOBULIN RATIO 1.3 (1.0-2.2); BILIRUBIN,TOTAL 0.8 mg/dL (0.2-1.0); CALCIUM 8.5 mg/dL (8.5-10.3); CREATININE 0.9 mg/dL (0.6-1.2); TOTAL PROTEIN 5.8 g/dL (6.7-8.2)
[2019-07-16 06:18] LABS: BAND NEUTROPHILS % (MANUAL) 1 %; LYMPHOCYTES # (MANUAL) 0.7 10^3/uL (1.5-3.5); LYMPHOCYTES % (MANUAL) 10 %; MONOCYTES # (MANUAL) 0.6 10^3/uL (0.0-1.0)
[2019-07-16 06:19] LABS: DIFFERENTIAL COMMENT MANUAL DIFFERENTIAL; PLATELET ESTIMATE, MANUAL NORMAL (130-450,000) (NORMAL); PLATELET MORPHOLOGY NORMAL APPEARANCE (NORMAL); RBC MORPHOLOGY (MULTIPLE) NORMAL APPEARANCE (NORMAL)
[2019-07-16] MEDS: PANTOPRAZOLE 40 MG VIAL IVP SCH (06:38)
[2019-07-16] MEDS: ENOXAPARIN 40 MG/0.4 ML SYRINGE SUBQ SCH (08:14)
[2019-07-16] MEDS: INSULIN ASPART 300 UNIT/3 ML PEN SUBQ SCH (08:14)
[2019-07-16 08:26] LABS: HB2 TOTAL 12.3 g/dL; HEMOGLOBIN A1C 0.59 g/dL; HEMOGLOBIN A1C % 6.5 % (4.6-6.2)
--- NOTE | 2019-07-16 09:28 | PROVIDER PROGRESS NOTE ---
Subjective - General Admit Date: 07/15/19 Procedure Date: 07/15/19 Post Op Days: 1 Procedure Performed: lap piper - Review of Systems Wound/Incisions: positive: Healing well, No drainage General: positive: No symptoms Pulmonary: positive: No symptoms Cardiovascular: positive: No symptoms Gastrointestinal: positive: Abdominal pain (minimal, well controlled with acetaminophen only) Genitourinary: positive: No symptoms Objective - Patient Data Reviewed Vital Signs: Yes Vital Signs: Vital Signs x48h Temp Pulse Resp BP Pulse Ox 07/16/19 07:50 37.0 C 56 L 18 118/64 96 07/16/19 06:10 37.0 C 61 16 126/67 96 Weight: Weight 07/14/19 07/15/19 07/16/19 23:59 23:59 23:59 Weight (kg) 93 kg Intake & Output: Intake and Output Totals x24h 07/14/19 07/15/19 07/16/19 23:59 23:59 23:59 Intake Total 2518 927.333 Output Total 340 1050 Balance 2178 -122.667 - Lab Results Lab Results: 07/16/19 05:28 07/16/19 05:28 Other Lab Results: Lab Results x24hrs 07/16/19 07/16/19 07/16/19 Range/Units 07:41 05:28 05:28 WBC (4.8-10.8) x10^3/uL RBC (4.70-6.10) 10^6/uL Hgb (14.0-18.0) g/dL Hct (42.0-52.0) % MCV (80.0-94.0) fL MCH (27.0-31.0) pg MCHC (32.0-36.0) g/dL RDW (12.0-15.0) % Plt Count (130-450) 10^3/uL MPV (7.4-11.4) fL Neut # (Auto) Lymph # (Auto) [place] # (Auto) Eos # (Auto) Baso # (Auto) Absolute Nucleated RBC Total Counted Band Neuts % (Manual) (0 - 10) % Abnorm Lymph % (Manual) % Nucleated RBC % Neutrophils # (Manual) (1.5-6.6) 10^3/uL Lymphocytes # (Manual) (1.5-3.5) 10^3/uL Monocytes # (Manual) (0.0-1.0) 10^3/uL Eosinophils # (Manual) (0-0.7) 10^3/uL Basophils # (Manual) (0-0.1) 10^3/uL Differential Comment WBC Morphology (NORMAL) Platelet Estimate (NORMAL) Platelet Morphology (NORMAL) RBC Morph Micro Appear (NORMAL) Sodium 136 (135-145) mmol/L Potassium 4.1 (3.5-5.0) mmol/L Chloride 103 (101-111) mmol/L Carbon Dioxide 25 (21-32) mmol/L Anion Gap 8.0 (6-13) BUN 14 (6-20) mg/dL Creatinine 0.9 (0.6-1.2) mg/dL Estimated GFR (MDRD) 83 L (>89) Glucose 171 H (70-100) mg/dL POC Whole Bld Glucose 143 H (70 - 100) mg/dL Glycated Hemoglobin 6.5 H (4.6-6.2) % Estim Average Glucose 140 H (70-100) Calcium 8.5 (8.5-10.3) mg/dL Total Bilirubin 0.8 (0.2-1.0) mg/dL AST 43 H (10-42) IU/L ALT 40 (10-60) IU/L Alkaline Phosphatase 52 (42-121) IU/L Total Protein 5.8 L (6.7-8.2) g/dL Albumin 3.3 (3.2-5.5) g/dL Globulin 2.5 (2.1-4.2) g/dL Albumin/Globulin Ratio 1.3 (1.0-2.2) 07/16/19 07/15/19 07/15/19 Range/Units 05:28 20:47 19:00 WBC 7.0 (4.8-10.8) x10^3/uL RBC 4.15 L (4.70-6.10) 10^6/uL Hgb 12.7 L (14.0-18.0) g/dL Hct 37.7 L (42.0-52.0) % MCV 90.8 (80.0-94.0) fL MCH 30.6 (27.0-31.0) pg MCHC 33.7 (32.0-36.0) g/dL RDW 12.0 (12.0-15.0) % Plt Count 147 (130-450) 10^3/uL MPV 10.1 (7.4-11.4) fL Neut # (Auto) Not Reportable Lymph # (Auto) Not Reportable [place] # (Auto) Not Reportable Eos # (Auto) Not Reportable Baso # (Auto) Not Reportable Absolute Nucleated RBC Not Reportable Total Counted 100 Band Neuts % (Manual) 1 (0 - 10) % Abnorm Lymph % (Manual) 0 % Nucleated RBC % Not Reportable Neutrophils # (Manual) 5.7 (1.5-6.6) 10^3/uL Lymphocytes # (Manual) 0.7 L (1.5-3.5) 10^3/uL Monocytes # (Manual) 0.6 (0.0-1.0) 10^3/uL Eosinophils # (Manual) 0.0 (0-0.7) 10^3/uL Basophils # (Manual) 0.0 (0-0.1) 10^3/uL Differential Comment MANUAL DIFFERENTIAL WBC Morphology NORMAL APPEARANCE (NORMAL) Platelet Estimate NORMAL (130-450,000) (NORMAL) Platelet Morphology NORMAL APPEARANCE (NORMAL) RBC Morph Micro Appear NORMAL APPEARANCE (NORMAL) Sodium (135-145) mmol/L Potassium (3.5-5.0) mmol/L Chloride (101-111) mmol/L Carbon Dioxide (21-32) mmol/L Anion Gap (6-13) BUN (6-20) mg/dL Creatinine (0.6-1.2) mg/dL Estimated GFR (MDRD) (>89) Glucose (70-100) mg/dL POC Whole Bld Glucose 189 H 186 H (70 - 100) mg/dL Glycated Hemoglobin (4.6-6.2) % Estim Average Glucose (70-100) Calcium (8.5-10.3) mg/dL Total Bilirubin (0.2-1.0) mg/dL AST (10-42) IU/L ALT (10-60) IU/L Alkaline Phosphatase (42-121) IU/L Total Protein (6.7-8.2) g/dL Albumin (3.2-5.5) g/dL Globulin (2.1-4.2) g/dL Albumin/Globulin Ratio (1.0-2.2) 07/15/19 07/15/19 Range/Units 16:46 11:29 WBC (4.8-10.8) x10^3/uL RBC (4.70-6.10) 10^6/uL Hgb (14.0-18.0) g/dL Hct (42.0-52.0) % MCV (80.0-94.0) fL MCH (27.0-31.0) pg MCHC (32.0-36.0) g/dL RDW (12.0-15.0) % Plt Count (130-450) 10^3/uL MPV (7.4-11.4) fL Neut # (Auto) Lymph # (Auto) [place] # (Auto) Eos # (Auto) Baso # (Auto) Absolute Nucleated RBC Total Counted Band Neuts % (Manual) (0 - 10) % Abnorm Lymph % (Manual) % Nucleated RBC % Neutrophils # (Manual) (1.5-6.6) 10^3/uL Lymphocytes # (Manual) (1.5-3.5) 10^3/uL Monocytes # (Manual) (0.0-1.0) 10^3/uL Eosinophils # (Manual) (0-0.7) 10^3/uL Basophils # (Manual) (0-0.1) 10^3/uL Differential Comment WBC Morphology (NORMAL) Platelet Estimate (NORMAL) Platelet Morphology (NORMAL) RBC Morph Micro Appear (NORMAL) Sodium (135-145) mmol/L Potassium (3.5-5.0) mmol/L Chloride (101-111) mmol/L Carbon Dioxide (21-32) mmol/L Anion Gap (6-13) BUN (6-20) mg/dL Creatinine (0.6-1.2) mg/dL Estimated GFR (MDRD) (>89) Glucose (70-100) mg/dL POC Whole Bld Glucose 135 H 147 H (70 - 100) mg/dL Glycated Hemoglobin (4.6-6.2) % Estim Average Glucose (70-100) Calcium (8.5-10.3) mg/dL Total Bilirubin (0.2-1.0) mg/dL AST (10-42) IU/L ALT (10-60) IU/L Alkaline Phosphatase (42-121) IU/L Total Protein (6.7-8.2) g/dL Albumin (3.2-5.5) g/dL Globulin (2.1-4.2) g/dL Albumin/Globulin Ratio (1.0-2.2) - Current Medications Current Medications: Current Medications Generic Name Dose Route Start Last Admin Trade Name Freq PRN Reason Stop Dose Admin Acetaminophen 650 mg 07/15/19 21:00 07/16/19 08:14 Tylenol PO 650 mg Q4HR ISIDORO Administration Enoxaparin Sodium 40 mg 07/15/19 23:55 07/16/19 08:14 Lovenox SUBQ 40 mg DAILY ISIDORO Administration Piperacillin Sod/Tazobactam 100 mls @ 200 mls/hr 07/15/19 14:00 07/16/19 09:00 Sod 3.375 gm/ Sodium Chloride IV Infused Q6H ISIDORO Infusion Lactated Ringer's 1,000 mls @ 80 mls/hr 07/15/19 18:49 07/16/19 02:06 Lr IV 0 mls/hr .[id number] ISIDORO Infusion Insulin Aspart 1 - 9 unit 07/15/19 21:00 07/16/19 08:14 Novolog SUBQ Not Given 0800,1200,1700,2100 [facility] Protocol Pantoprazole Sodium 40 mg 07/15/19 10:00 07/16/19 06:38 Protonix IVP 40 mg QDAC ISIDORO Administration Sodium Chloride 10 ml 07/15/19 07:44 07/16/19 06:38 Normal Saline Flush 0.9% IVP 20 ml PRN PRN Administration NEEDED PER PROVIDER ORDERS Sodium Chloride 10 ml 07/15/19 09:00 07/16/19 08:15 Normal Saline Flush 0.9% IVP 10 ml 0100,0900,1700 ISIDORO Administration Throat Lozenges 1 lozenge 07/16/19 01:59 07/16/19 02:12 Cepacol MM 1 lozenge Q2HR PRN Administration Throat pain - Physical Exam Wound/Incisions: positive: Healing well, No drainage General Appearance: positive: No acute distress, Alert Neck: positive: No JVD Respiratory: positive: Chest non-tender, No respiratory distress, Breath sounds nml. negative: Wheezes, Rales, Rhonchi Cardiovascular: positive: Regular rate & rhythm, No murmur, No gallop Abdomen: positive: Nml bowel sounds, Tenderness (minimal herb-incisional tenderness). negative: Guarding, Rebound Skin: positive: Color nml, No rash, Warm, Dry. negative: Cyanosis Extremities: positive: Non-tender, No pedal edema. negative: Calf tenderness Neurologic/Psychiatric: positive: Oriented x3 ABX Reporting Has patient been on IV antibiotics over the past 48 hours?: No Impression/Plan - Problem List Problem List: Doing well POD #1 s/p lap piper for acute calculous cholecystitis Rec: ok for d/c from surgical standpoint; usual precautions; non narcotic analgesics; f/u my office in 1-2 weeks. No additional antibiotic necessary.
--- NOTE | 2019-07-16 10:21 | Discharge Plan ---
Discharge Plan Problem Reviewed?: Yes Disposition: Home, Self Care Condition: Stable Diet: Diabetic Activity Restrictions: Activity as Tolerated Shower Restrictions: No (fall precaution) Instruction Topics: Cholecystectomy Health Concerns: status post of cholecystectomy Plan of Treatment: you tolerate the diet, no abdominal pain. you may followup the surgical office in 1-2 weeks. Care Goals: stable Assessment: discussed with you about your care plan, and followup appointment. you agreed. Additional Instructions or Follow Up instructions: you may followup your PCP in 2 weeks, followup surgical office in 1-2 weeks. Should your symptoms return or worsen, you may return ER or call 911 for help. No Smoking: If you smoke, Please STOP! Call for help. Follow-up with: Noah Edwards MD [Primary Care Provider] -
--- NOTE | 2019-07-16 10:31 | DISCHARGE SUMMARY ---
"Discharge Summary Admit Date: 07/15/19 Discharge Date: 07/16/19 Discharging Provider: [facility] Primary Care Provider: Noah Sullivan Condition at Discharge: Stable Discharge Disposition: 01 Home, Self Care Discharge Facility Name: home - DIAGNOSES Admission Diagnoses: (1) Cholecystitis (2) Pre-op evaluation (3) CAD (coronary artery disease) (4) BPH (benign prostatic hyperplasia) (5) Type 2 diabetes mellitus Discharge Diagnoses with Status of Each Condition: (1) Cholecystitis pt had cholecystectomy done by surgeon Dr. Milton in the hospital. pt tolerate diet, pt denied any abdominal pain. surgeon discharged pt as well. (2) CAD (coronary artery disease) stable, continue home meds (3) BPH (benign prostatic hyperplasia) stable (4) Type 2 diabetes mellitus stable, continue home meds - [facility] History of Present Illness: refer from Dr. Pedraza's HPI on 07/15/19 This is a 74-year-old male with a past medical history significant for type 2 diabetes, coronary artery disease with stenting Who presents from home complaining of epigastric and chest pain. He reports the pain began yesterday around 2 PM after he had fried chicken 1 hour earlier. He did peel the skin off the chicken prior to eating this. He then had nausea with dry heaves. He reports no similar episodes. He reports no fevers but he did have chills. He did feel like he was short of breath after the episode and had heartburn and some chest pain. He also reports diffuse abdominal pain during that time.He reports no dysuria, urgency. Reports that he is normally quite active and hikes quite a bit. He does not have chest pain with exertion. He had a nuclear stress test completed approximately 1 year ago and was told it was normal. 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 In the emergency department, he was found to be hemodynamically stable. Labs were unremarkable except for a white count of 11.3 and a glucose of 204. Total bilirubin was 1.5. AST and ALT were normal. Lipase was also normal. He underwent a right upper quadrant ultrasound which showed a large stone in the neck of the bladder and wall thickening at 4 mm. There was no duct dilatation. This was consistent with acute cholecystitis. Surgery was consulted and recommended medicine admission given the history of coronary artery disease and diabetes. He will be admitted for further management. Discussed with the patient regarding goals of care and he would like to be a full code. - CONSULTS | PROCEDURES Consultations: Dr. Meir Milton Procedures: cholecystectomy - HOSPITAL COURSE Hospital Course: pt was admitted for epigastric pain. pt was found to have acute cholecystitis. pt had cholecystectomy done by surgeon Dr. Milton. S/P surgeon, pt tolerate regular diet, pt denies any abdominal pain. Dr. Milton discharged pt. pt declined pain meds for his d/c the detail hospital course is as the below 1) Cholecystitis pt had cholecystectomy done by surgeon Dr. Milton in the hospital. pt tolerate diet, pt denied any abdominal pain. surgeon discharged pt as well. (2) CAD (coronary artery disease) stable, continue home meds (3) BPH (benign prostatic hyperplasia) stable (4) Type 2 diabetes mellitus stable, continue home meds - ALLERGIES Allergies/Adverse Reactions: Allergies Allergy/AdvReac Type Severity Reaction Status Date / Time No Known Drug Allergies Allergy Verified 02/17/15 16:37 - MEDICATIONS Home Medications: Ambulatory Orders Medication Instructions Recorded Confirmed Aspirin [Aspir 81] 162 mg PO DAILY 02/17/15 07/16/19 Tamsulosin [Flomax] 0.4 mg PO DAILY 02/17/15 07/16/19 metFORMIN [Glucophage] 500 mg PO BIDWM 02/17/15 07/16/19 Atorvastatin Calcium 20 mg PO QPM 07/16/19 07/16/19 - PHYSICAL EXAM AT DISCHARGE General Appearance: positive: No acute distress, Alert. negative: Lethargic Eyes Bilateral: positive: Normal inspection, PERRL, No lid inflammation ENT: positive: ENT inspection nml, Pharynx nml, No signs of dehydration. negative: Purulent nasal drainage Neck: positive: Nml inspection, Thyroid nml, No JVD, Trachea midline. negative: Thyromegaly, Lymphadenopathy (R), Lymphadenopathy (L), Stiff neck, Tracheal deviation Respiratory: positive: Chest non-tender, No respiratory distress, Breath sounds nml. negative: Wheezes, Rales, Rhonchi Cardiovascular: positive: Regular rate & rhythm, No murmur, No gallop. negative: Irregularly irregular, Extrasystoles, Tachycardia, Bradycardia, JVD present, Systolic murmur, Diastolic murmur Peripheral Pulses: positive: 2+ Abdomen: positive: Non-tender, No organomegaly, Nml bowel sounds, No distention. negative: Tenderness, Guarding, Rebound Back: positive: Nml inspection. negative: CVA tenderness (R), CVA tenderness (L) Skin: positive: Color nml, No rash, Warm, Dry. negative: Cyanosis, Diaphoresis, Pallor Extremities: positive: Non-tender, Full ROM, Nml appearance. negative: Calf tenderness, Joint swelling, Mirta's sign/cords Neurologic/Psychiatric: positive: Oriented x3, Motor nml, Sensation nml, Mood/affect nml. negative: Weakness, Sensory loss, Facial droop, Slurred/abnml speech, Depressed mood/affect - LABS Result Diagrams: 07/16/19 05:28 07/16/19 05:28 - FOLLOW UP Follow Up: you may followup your PCP in 2 weeks, followup surgical office in 1-2 weeks. Should your symptoms return or worsen, you may return ER or call 911 for help. - TIME SPENT Time Spent in Discharge (Minutes): 45"
[2019-07-16 10:47] VITALS: BP 131/73
[2019-07-16] MEDS ORDERED: DEXAMETHASONE 4 MG/ML VIAL IVP ONE (17:06)
[2019-07-16] MEDS ORDERED: LIDOCAINE-MPF 2% 5 ML VIAL IM ONE (17:06)
[2019-07-16] MEDS ORDERED: fentaNYL 100 MCG/2 ML VIAL IVP ONE (17:06)
[2019-07-16] MEDS ORDERED: ROCURONIUM 50 MG/5 ML VIAL IVP ONE (17:06)
[2019-07-16] MEDS ORDERED: MIDAZOLAM 2 MG/2 ML VIAL IVP ONE (17:06)
[2019-07-16] MEDS ORDERED: ONDANSETRON 4 MG/2 ML VIAL IVP ONE (17:06)
[2019-07-16] MEDS ORDERED: NEOSTIGMINE 1 MG/1 ML 10 ML MDV IVP ONE (17:06)
[2019-07-16] MEDS ORDERED: KETOROLAC 30 MG/ML VIAL IVP ONE (17:06)
[2019-07-16] MEDS ORDERED: PROPOFOL 200 MG/20 ML VIAL IVP ONE (17:06)
[2019-07-16] MEDS ORDERED: GLYCOPYRROLATE 1 MG/5 ML VIAL IVP ONE (17:06)
== END 2019-07-16 10:50 | disposition home or self-care (01) ==
LOC: ED 04:29 → MS2 07:44
PROVIDERS: ADMIT Internal Medicine; ATTEND Nurse Practitioner Gerontology
PROC: 0FT44ZZ Resection of Gallbladder, Percutaneous Endoscopic Approach (ICD-10-PCS; principal; 2019-07-15 17:00)
DX: K80.00 Calculus of gallbladder with acute cholecystitis without obstruction (principal); E11.9 Type 2 diabetes mellitus without complications; I25.10 Atherosclerotic heart disease of native coronary artery without angina pectoris; E78.00 Pure hypercholesterolemia, unspecified; N40.0 Benign prostatic hyperplasia without lower urinary tract symptoms; Z96.649 Presence of unspecified artificial hip joint; Z79.82 Long term (current) use of aspirin; Z79.84 Long term (current) use of oral hypoglycemic drugs; Z95.5 Presence of coronary angioplasty implant and graft
CPT/HCPCS: 36415; 47562; 76705; 80053; 81003; 83036; 83690; 84484; 85025; 93005; 96361; 96374; 99284; 99285; A9270; G0378; J0131; J1170; J1650; J1815; J7120; 81001; 87086

== ENCOUNTER 2021-09-01 06:16 | Day surgery (SDC) | payer MEDICARE, OTHER ==
[2021-09-01] MEDS ORDERED: LACTATED RINGERS 1,000 ML IV ONE ×2 (06:36→08:09)
--- NOTE | 2021-09-01 07:13 | ANESTHESIA ---
Pre-Anesthesia VS, & Labs - Diagnosis screening exam - Procedure colonoscopy Vital Signs: Temp Pulse Resp BP Pulse Ox 36 C L 66 16 148/80 H 99 09/01/21 06:39 09/01/21 06:39 09/01/21 06:39 09/01/21 06:39 09/01/21 06:39 Height: 6 ft 3 in Weight (kg): 93 kg Body Mass Index: 25.6 BMI Classification: Overweight - NPO >8 hours - Lab Results Current Lab Results: Laboratory Tests 09/01/21 06:48: POC Whole Bld Glucose 175 H Home Medications and Allergies Home Medications: Ambulatory Orders Ezetimibe [Zetia] 10 mg PO QD 08/31/21 Aspirin [Aspir 81] 162 mg PO DAILY 02/17/15 Tamsulosin [Flomax] 0.4 mg PO DAILY 02/17/15 metFORMIN [Glucophage] 500 mg PO BIDWM 02/17/15 Atorvastatin Calcium 20 mg PO QPM 07/16/19 Ezetimibe [Zetia] 10 mg PO QD 08/31/21 Allergies/Adverse Reactions: Allergies Allergy/AdvReac Type Severity Reaction Status Date / Time No Known Drug Allergies Allergy Verified 02/17/15 16:37 Anes History & Medical History - Anesthetic History Anesthesia Complications: reports: No previous complications - Medical History Cardiovascular: reports: High cholesterol, [place] (2004. stents x7) Pulmonary: reports: None Gastrointestinal: reports: Hemorrhoids Urinary: reports: Benign prostate hypertrophy Neuro: reports: None Musculoskeletal: reports: None Endocrine/Autoimmune: reports: Type 2 diabetes Blood Disorders: reports: None Skin: reports: None Smoking Status: Former smoker (quit 1981) Psychosocial: reports: Alcohol (Wine daily) History of Cancer?: No - Surgical History Cardiothoracic: reports: Coronary stent Orthopedic: reports: Hip replacement Exam General: Alert, Oriented x3, Cooperative, No acute distress Dental: WNL Mouth Openin Fingerbreadth Neck Mobility: Normal Mallampati classification: II Thyromental Distance: 4-6 cm Mental/Cognitive Status: Alert/Oriented X3, Normal for patient Plan Anesthesia Type: General, Total IV Consent for Procedure(s) Verified and Reviewed: Yes Code Status: Attempt Resuscitation ASA classification: 3-Severe systemic disease Is this case an emergency?: No
[2021-09-01] MEDS ORDERED: fentaNYL 100 MCG/2 ML VIAL ONE (07:24)
[2021-09-01] MEDS ORDERED: PROPOFOL 500 MG/50 ML 500 MG/50 ML VIAL ONE (07:24)
[2021-09-01] MEDS ORDERED: ePHEDrine 50 MG/ML VIAL IVP ONE (07:54)
[2021-09-01 08:48] VITALS: BP 135/64
--- NOTE | 2021-09-01 10:05 | ANESTHESIA POST OP EVALUATION ---
Anesthesia Post Eval - Post Anesthesia Eval Vitals: Last Vital Signs Temp 36.3 C L 09/01/21 08:47 Pulse 65 09/01/21 08:47 Resp 16 09/01/21 08:47 BP 135/64 H 09/01/21 08:47 Pulse Ox 95 09/01/21 08:47 CV Function Including HR & BP: Stable Pain Control: Satisfactory Nausea & Vomiting: Negative Mental Status: Baseline Respiratory Status: Airway Patent Hydration Status: Satisfactory Anesthesia Complications: None
== END 2021-09-01 06:17 | disposition home or self-care (01) ==
LOC: SDS 06:16
PROVIDERS: ATTEND Surgery
PROC: 0DBP8ZZ Excision of Rectum, Via Natural or Artificial Opening Endoscopic (ICD-10-PCS; 2021-09-01)
PROC: 0DBL8ZZ Excision of Transverse Colon, Via Natural or Artificial Opening Endoscopic (ICD-10-PCS; principal; 2021-09-01 07:30)
DX: D12.3 Benign neoplasm of transverse colon (principal); K62.1 Rectal polyp; K64.8 Other hemorrhoids; E11.9 Type 2 diabetes mellitus without complications; Z79.84 Long term (current) use of oral hypoglycemic drugs; N40.0 Benign prostatic hyperplasia without lower urinary tract symptoms; Z87.891 Personal history of nicotine dependence
CPT/HCPCS: 45380; 45385; J7120